=== PATIENT | female | born 1970 | race Two or more races ===

== ENCOUNTER 2020-08-04 10:41 | Emergency (ER) | payer MEDICAID ==
[~2020-08-04] VITALS: Ht 165.1 cm; Wt 55.0 kg
[2020-08-04] MEDS ORDERED: FOLIC ACID 1 MG, THIAMINE HCL 100 MG in DEXTROSE 5% WATER 1,000 ML IV ONE (11:15)
[2020-08-04] MEDS ORDERED: SODIUM CHLORIDE 0.9% 1,000 ML IV ONE (11:15)
[2020-08-04] MEDS ORDERED: ACETAMINOPHEN 325MG TABLET PO ONE (11:15)
[2020-08-04] MEDS ORDERED: MULTIVITAMINS,THER W-MINERALS TABLET PO NR (11:15)
[2020-08-04] MEDS ORDERED: FOLIC ACID 1 MG, THIAMINE HCL 100 MG, MVI, ADULT NO.1 10 ML in DEXTROSE 5% WATER 1,000 ML IV ONE (11:15)
[2020-08-04] MEDS ORDERED: LORAZEPAM 2MG/ML CPJ IV ONE (11:15)
[2020-08-04 11:23] LABS: EOSINOPHILS % 1.1 % (0.0-5.0); HEMATOCRIT. 41.9 % (36.0-48.0); HEMOGLOBIN. 13.7 g/dL (12.0-16.0); LYMPHOCYTES % 48.5 % (20.0-50.0); MEAN CORPUSCULAR HEMOGLOBIN 30.6 pg (28.0-32.0); MEAN CORPUSCULAR VOLUME 93.5 fL (81.0-99.0); MEAN PLATELET VOLUME 6.7 fl (7.4-10.4); MONOCYTES % 8.8 % (2.0-8.0); NEUTROPHILS % 39.6 % (40.0-76.0); PLATELET 259 x1000/uL (130-400); RED BLOOD CELL COUNT 4.49 mill/uL (4.2-5.4); RED CELL DISTRIBUTION WIDTH 17.2 % (11.6-14.6)
[2020-08-04 11:33] LABS: INR 0.9; PROTHROMBIN TIME 10.2 sec (9.6-11.0)
[2020-08-04 11:34] LABS: CHLORIDE 101 mEq/L (98-107)
[2020-08-04 12:39] LABS: CLARITY URINE CLEAR (CLEAR); COLOR URINE YELLOW (YELLOW); KETONES URINE TRACE (NEGATIVE); LEUKOCYTE ESTERASE URINE 1+ (NEGATIVE); NITRITE URINE NEGATIVE (NEGATIVE); OCCULT BLOOD URINE NEGATIVE (NEGATIVE); PROTEIN URINE NEGATIVE (NEGATIVE); SPECIFIC GRAVITY URINE 1.027 (1.005-1.030); UROBILINOGEN URINE 0.2 E.U./dL (0.2-1.0)
[2020-08-04 13:30] VITALS: BP 131/89
== END 2020-08-04 15:33 | disposition home or self-care (01) ==
LOC: ER 10:41
DX: G62.9 Polyneuropathy, unspecified (principal); F11.10 Opioid abuse, uncomplicated; I10 Essential (primary) hypertension; Z95.0 Presence of cardiac pacemaker; Z88.1 Allergy status to other antibiotic agents
CPT/HCPCS: 36415; 80053; 81003; 83690; 85025; 85610; 96365; 96375; 99284; J2060; J3411; J3490; J7030; J7070; Z7610

== ENCOUNTER 2020-11-12 05:37 | Emergency (ER) | payer MEDICAID ==
[~2020-11-12] VITALS: Ht 165.1 cm; Wt 62.0 kg
[2020-11-12] MEDS ORDERED: MORPHINE SULFATE 4 MG/ML CPJ (NOT FOR IM USE) IV STA (05:53)
[2020-11-12] MEDS ORDERED: KETOROLAC 30MG/ML VIAL IV STA (05:53)
[2020-11-12] MEDS ORDERED: ONDANSETRON HCL 4MG/2ML INJ IV STA (05:53)
[2020-11-12] MEDS ORDERED: SODIUM CHLORIDE 0.9% 1,000 ML IV ONE (06:00)
[2020-11-12 06:20] LABS: BASOPHILS % 0.7 % (0.0-2.0); EOSINOPHILS % 2.6 % (0.0-5.0); HEMATOCRIT. 37.8 % (36.0-48.0); HEMOGLOBIN. 12.3 g/dL (12.0-16.0); LYMPHOCYTES % 11.6 % (20.0-50.0); MEAN CORPUSCULAR HEMOGLOBIN 29.3 pg (28.0-32.0); MEAN CORPUSCULAR VOLUME 90.7 fL (81.0-99.0); MEAN PLATELET VOLUME 6.5 fl (7.4-10.4); MONOCYTES % 4.2 % (2.0-8.0); NEUTROPHILS % 80.9 % (40.0-76.0); PLATELET 334 x1000/uL (130-400); RED BLOOD CELL COUNT 4.17 mill/uL (4.2-5.4); RED CELL DISTRIBUTION WIDTH 16.6 % (11.6-14.6)
[2020-11-12 06:27] LABS: CHLORIDE 103 mEq/L (98-107)
[2020-11-12 06:31] LABS: ETHANOL BLOOD 35 mg/dL
[2020-11-12 06:40] LABS: CLARITY URINE CLOUDY (CLEAR); COLOR URINE YELLOW (YELLOW); KETONES URINE 3+ (NEGATIVE); LEUKOCYTE ESTERASE URINE 3+ (NEGATIVE); NITRITE URINE POSITIVE (NEGATIVE); OCCULT BLOOD URINE TRACE (NEGATIVE); PH URINE 5.5 (4.5-8.0); PROTEIN URINE 1+ (NEGATIVE); SPECIFIC GRAVITY URINE 1.022 (1.005-1.030)
[2020-11-12 06:54] LABS: *AMPHETAMINES SCREEN URINE NEGATIVE (NEGATIVE); *BARBITURATES SCREEN URINE NEGATIVE (NEGATIVE); OPIATES URINE SCREEN NEGATIVE (NEGATIVE); PHENCYCLIDINE URINE SCREEN NEGATIVE (NEGATIVE)
[2020-11-12 07:00] LABS: *BENZODIAZEPINES SCREEN URINE PRESUMTIVE POSITIVE (NEGATIVE); *COCAINE SCREEN URINE PRESUMTIVE POSITIVE (NEGATIVE); CANNABINOID URINE SCREEN PRESUMTIVE POSITIVE (NEGATIVE); METHADONE URINE SCREEN PRESUMTIVE POSITIVE (NEGATIVE)
[2020-11-12] MEDS ORDERED: SULF1TAB44 MT (07:29)
[2020-11-12] MEDS ORDERED: ONDA4TAB11 PO (07:30)
[2020-11-12] MEDS ORDERED: IBUP-2028 MT (07:32)
[2020-11-12 08:37] VITALS: BP 142/87
== END 2020-11-12 08:41 | disposition home or self-care (01) ==
LOC: ER 05:37
DX: N39.0 Urinary tract infection, site not specified (principal); F19.10 Other psychoactive substance abuse, uncomplicated; R94.31 Abnormal electrocardiogram [ECG] [EKG]; I10 Essential (primary) hypertension; Z88.3 Allergy status to other anti-infective agents; Z95.0 Presence of cardiac pacemaker
CPT/HCPCS: 36415; 80053; 80305; 80320; 81003; 81025; 83690; 85025; 87077; 87086; 87186; 93005; 96361; 96374; 96375; 99284; J1885; J2270; J2405; J7030; Z7610; G0480